=== PATIENT | male | born 1960 | race Caucasian/White ===

== ENCOUNTER 2016-07-16 08:16 | Day surgery (SDC) | payer OTHER ==
[~2016-07-16] VITALS: Ht 177.8 cm; Wt 112.0 kg
[2016-07-16 08:52] VITALS: BP 149/80; PULSE 64; TEMP 98.3
[2016-07-16] MEDS ORDERED: LIPITOR 80MG80 MG PO (09:01)
[2016-07-16] MEDS ORDERED: NIACIN FLUSH F400 MG PO (09:01)
[2016-07-16] MEDS ORDERED: VITAMIN C500 MG PO (09:02)
[2016-07-16] MEDS ORDERED: DESYREL 100MG100 MG PO (09:02)
[2016-07-16] MEDS ORDERED: ASPIRIN E.C. 8181 MG PO (09:03)
[2016-07-16] MEDS ORDERED: MASON NATURAL500 MG PO (09:03)
[2016-07-16] MEDS ORDERED: OMEGA-3 FISH1000 MG PO (09:03)
[2016-07-16] MEDS ORDERED: PAMELOR50 MG PO (09:04)
[2016-07-16] MEDS ORDERED: LYSINE1000 MG PO (09:05)
[2016-07-16] MEDS ORDERED: DAZIDOX10 MG PO (09:05)
[2016-07-16 09:45] VITALS: BP 118/77; PULSE 62; TEMP 98.2
[2016-07-16 10:00] VITALS: BP 118/71; PULSE 68
[2016-07-16] MEDS ORDERED: PRIL40 PO (10:09)
[2016-07-16 10:15] VITALS: BP 121/71; PULSE 61
[2016-07-16 10:45] VITALS: BP 117/73; PULSE 66
[2016-07-16 11:12] VITALS: BP 148/51; PULSE 70
== END 2016-07-16 11:15 | disposition home or self-care (01) ==
LOC: SDCO 08:16
DX: R06.02 Shortness of breath (principal); R05 Cough; G47.30 Sleep apnea, unspecified; Z79.899 Other long term (current) drug therapy; Z79.82 Long term (current) use of aspirin
CPT/HCPCS: J0456; J2704; J2920; J7050; J7120

== ENCOUNTER → 2016-07-23 | Outpatient (CLI) | payer OTHER ==
[~2016-07-23] MED LIST: ASPIRIN E.C. 8181 MG PO; DAZIDOX10 MG PO; DESYREL 100MG100 MG PO; LIPITOR 80MG80 MG PO; LYSINE1000 MG PO; MASON NATURAL500 MG PO; NIACIN FLUSH F400 MG PO; OMEGA-3 FISH1000 MG PO; PAMELOR50 MG PO; PRIL40 PO; VITAMIN C500 MG PO
== END ==
LOC: COL.PUL 08:47
DX: R06.02 Shortness of breath (principal)
CPT/HCPCS: J7674